=== PATIENT | female | born 1955 ===

== ENCOUNTER → 2016-11-29 | Outpatient (CLI) | payer OTHER | LOC: FIMAGING 18:46 | PROVIDERS: ATTEND Physician Assistant | DX: S86.311A Strain of muscle(s) and tendon(s) of peroneal muscle group at lower leg level, right leg, initial encounter (principal); S93.401A Sprain of unspecified ligament of right ankle, initial encounter; M76.821 Posterior tibial tendinitis, right leg; M25.571 Pain in right ankle and joints of right foot ==